=== PATIENT | female | born 2000 | race Caucasian/White ===

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

== ENCOUNTER → 2020-03-23 | Outpatient (CLI) | payer OTHER ==
[2020-03-26 06:34] LABS: Herpes simplex I and/or II IgM 1.25 INDEX (<=0.90); Herpes simplex IgG I Ab 0.23 (< or = 0.90); Herpes simplex IgG II Ab 15.5 (< or = 0.90)
== END | disposition home or self-care (01) ==
LOC: LABWHC1 15:07
PROVIDERS: ATTEND Nurse Practitioner Family
DX: N90.9 Noninflammatory disorder of vulva and perineum, unspecified (principal)
CPT/HCPCS: 36415; 86694; 86695; 86696

== ENCOUNTER 2023-09-27 17:44 | Outpatient (CLI) | payer BC, OTHER ==
[2023-09-27 19:14] VITALS: BP 121/70; PULSE 101; RESP 16; TEMP 98
--- NOTE | 2023-09-28 09:07 | P.MSEPDOC ---
Presenting Problems - Arrival Data Date of Arrival on Unit: 09/27/23 Time of Arrival on Unit: 17:45 Mode of Transport: Ambulatory - Complaint OB-Reason for Admission/Chief Complaint: Possible Onset of Labor Comment: cramping at home last 45 minutes. sharp pains also in vaginal area. has shorter cervix per u/s and being watched Medical History - Information : 1 Para: 0 Term: 0 : 0 Abortions: Spontaneous or Elective: 0 Number of Living Children: 0 - Gestational Age Gestational Age by MONA (wks/days): 24 Weeks and 1 Days Review of Systems - Review of Systems Constitutional: No problems Breast: No problems ENT: No problems Cardiovascular: No problems Respiratory: No problems Gastrointestinal: No problems Genitourinary: No problems Musculoskeletal: No problems Neurological: No problems Skin: No problems Comment: denies bleeding, leaking fluid, or discharge. denies intercourse, strenious exercise or heavy lifting. Vital Signs - Temperature Temperature: 98.0 F Temperature Source: Temporal Artery Scan - Pulse Right Radial Pulse Rate: 101 Pulse Assessment Method: Automatic Cuff - Respirations Respiratory Rate: 16 Oxygen Delivery Method: Room Air O2 Sat by Pulse Oximetry: 99 - Blood Pressure Right Arm Blood Pressure: 121/70 Blood Pressure Mean: 87 Blood Pressure Source: Automatic Cuff Medical Screen Scoring - Cervical Exam Dilation (cm): 0 Membranes: Intact - Uterine Contractions Intensity: Absent Resting: Soft to palpation - Assessment - Baby A Baseline FHR: 145 Heart Rate - NICHD Category: Category I (Normal) NST: Reactive Physician Notification - Physician Notified Physician Notified Date: 09/27/23 Physician Notified Time: 18:30 Physician: Rupa Horne New Order Received: Yes (october discharge with instructions and follow up to see dr Jesus mahmood.) Maternal Triage Index - Scheduled/Requesting Priority 5 Scheduled/Requesting Priority 5: Yes Criteria Met for Priority 5: c/o cramping and sharp pain in vagina for last 45 minutes. cervix closed, posterior, 50% effaced, hx of thinner cervix with preg. ,-2 station. no leaking fluid or bleeding. no monitoored contx. abd soft nontender to touch. active fetus. Disposition - Disposition OB Disposition: Physician follow up in office, Discharge to home, Written follow up instructions reviewed Discharge Date: 09/27/23 Discharge Time: 18:45 I agree with the RN Medical Screening Exam: Yes Case reviewed; plan agreed upon as documented in EMR&OBIX.: Yes Diagnosis: PAIN, UNSPECIFIED
== END 2023-09-27 18:45 | disposition home or self-care (01) ==
LOC: FBPOP 17:44
PROVIDERS: ATTEND Obstetrics & Gynecology
DX: O47.02 False labor before 37 completed weeks of gestation, second trimester (principal); O99.332 Smoking (tobacco) complicating pregnancy, second trimester; F17.200 Nicotine dependence, unspecified, uncomplicated; Z3A.24 24 weeks gestation of pregnancy
CPT/HCPCS: 99213

== ENCOUNTER 2023-11-30 13:00 | Outpatient (CLI) | payer BC, OTHER ==
[2023-11-30] MEDS: ONDANSETRON 4 MG/2 ML VIAL IVP STA (13:50)
[2023-11-30] MEDS: LACTATED RINGERS 1,000 ML IV ONE (13:50)
[2023-11-30] MEDS: FAMOTIDINE 20 MG/2 ML VIAL IV STA (13:52)
[2023-11-30 14:52] LABS: Appearance,Urine Clear (Clear); Bilirubin,Urine Negative (Negative); Blood,Urine Negative (Negative); Color,Urine Light Yellow; Glucose,Urine (UA) Negative (Negative); Ketones,Urine Negative (Negative); Leukocyte Esterase,Urine Small (Negative); Mucus,Urine Rare /hpf; Nitrite,Urine Negative (Negative); PH, Urine 7.5 (5.0-8.0); Protein,Urine Negative (Negative); RBC,Urine 1 /hpf (0-5); Specific Gravity,Urine 1.015 (1.001-1.035); Squamous Epithelial Cell,Urine 8 /hpf (0-4); Urobilinogen,Urine <2.0 mg/dL (<2.0); WBC,Urine 3 /hpf (0-5)
[2023-11-30] MEDS: NIFEdipine 10 MG CAP PO STA (15:36)
[2023-11-30] MEDS: TERBUTALINE 1 MG/ML VIAL SQ PRN (16:50)
[2023-11-30 17:27] VITALS: BP 112/72; PULSE 101; RESP 16; TEMP 97.9
--- NOTE | 2023-12-13 15:50 | P.MSEPDOC ---
Presenting Problems - Arrival Data Date of Arrival on Unit: 11/30/23 Time of Arrival on Unit: 13:00 Mode of Transport: Ambulatory - Complaint OB-Reason for Admission/Chief Complaint: Other Comment: N/V, back pain, abdominal pain Medical History - Information : 1 Para: 0 Term: 0 : 0 Abortions: Spontaneous or Elective: 0 Number of Living Children: 0 - Gestational Age Gestational Age by MONA (wks/days): 33 Weeks and 2 Days Review of Systems - Review of Systems Constitutional: No problems Breast: No problems ENT: No problems Cardiovascular: No problems Respiratory: No problems Gastrointestinal: No problems Genitourinary: No problems Musculoskeletal: No problems Neurological: No problems Skin: No problems Vital Signs - Temperature Temperature: 97.9 F Temperature Source: Temporal Artery Scan - Pulse Pulse Oximetery Pulse Rate: 101 Pulse Assessment Method: Pulse Oximetry - Respirations Respiratory Rate: 16 Oxygen Delivery Method: Room Air O2 Sat by Pulse Oximetry: 97 - Blood Pressure Right Arm Blood Pressure: 112/72 Blood Pressure Mean: 85 Blood Pressure Source: Automatic Cuff Medical Screen Scoring - Cervical Exam Dilation (cm): 0.5 Effacement (%): 60 Station: -3 Membranes: Intact - Uterine Contractions Frequency From (mins): 5 Frequency To (mins): 9 Duration From (seconds): 40 Duration To (seconds): 110 Intensity: Mild Resting: Soft to palpation - Assessment - Baby A Baseline FHR: 145 Heart Rate - NICHD Category: Category I (Normal) NST: Reactive Physician Notification - Physician Notified Physician Notified Date: 11/30/23 Physician Notified Time: 13:00 Physician: Chela Lee New Order Received: Yes - Notification Comment Comment: Dr. Lee on unit, report given that pt is having back/abdominal pain that started this morning as well as N/V. Orders to start an IV, give 1L LR bolus, 4mg zofran IVP, 20mg pepcid IVP, and send a UA. [id number] - Dr. Lee called, report given that nausea is better following zofran and pepcid, however, pt is still crampy and jude every 4-7mins. FFN collected and SVE performed (fingertip/60-70/-3). Orders to give a 2nd bag of IV fluid and reassess. Call back with cx pattern once UA is resulted and LR is infused. 1513-Dr. Lee called, report given on UA (no ketones), cx remain 5-6mins apart and pt is rating them 3/10 now. Orders to give 10mg PO procardia now and recheck cervix. If cx space out, pt can be discharged home, if cx do not space out, call MD back. 1634 -Dr. Lee called, report given that pt is still feeling contractions and (per pt) they are more intense. Contractions still graphing q6mins. Orders to give terbutaline per protocol. 1713-Dr. Lee called, report given that cx have stopped after 1 dose of terb. Pt is feeling much better now and has no complaints. Orders to discharge pt home with labor precautions Maternal Triage Index - Maternal Triage Index Presenting for scheduled procedure w/no complaint: No - Stat/Priority 1 Stat Priority 1: No - Urgent/Priority 2 Urgent Priority 2: Yes Provider Notified: Chela Lee Provider Notified Time: 13:00 Criteria Met for Priority 2: 33 2/7wks, n/v, detectable cx Disposition - Disposition OB Disposition: Discharge to home Discharge Date: 11/30/23 Discharge Time: 17:27 I agree with the RN Medical Screening Exam: Yes Physician's MSE Comment: I have neither seen nor examined the patient Case reviewed; plan agreed upon as documented in EMR&OBIX.: Yes Diagnosis: MATERNAL CARE FOR PROBLEM, UNSP, THIRD * DO NOT USE *
== END 2023-11-30 17:27 | disposition home or self-care (01) ==
LOC: FBPOP 13:00
PROVIDERS: ATTEND Obstetrics & Gynecology
DX: O26.893 Other specified pregnancy related conditions, third trimester (principal); M54.50 Low back pain, unspecified; R10.9 Unspecified abdominal pain; O99.333 Smoking (tobacco) complicating pregnancy, third trimester; F17.200 Nicotine dependence, unspecified, uncomplicated; Z3A.33 33 weeks gestation of pregnancy
CPT/HCPCS: 59025; 99214; 96361; 96372; 96374; 96375; 81001; J3105; J2405; J3490; 96360

== ENCOUNTER 2023-12-27 21:20 | Outpatient (CLI) | payer BC, OTHER ==
[2023-12-27 22:56] VITALS: BP 134/90; PULSE 104; RESP 16; TEMP 97.1
--- NOTE | 2024-01-24 10:37 | P.MSEPDOC ---
Presenting Problems - Arrival Data Date of Arrival on Unit: 12/27/23 Time of Arrival on Unit: 21:20 Mode of Transport: Ambulatory - Complaint OB-Reason for Admission/Chief Complaint: Possible Onset of Labor Comment: Patient presents to triage with contractions around every 5 min rating 2/10 pain Medical History - Information : 1 Para: 0 Term: 0 : 0 Abortions: Spontaneous or Elective: 0 Number of Living Children: 0 - Gestational Age Gestational Age by MONA (wks/days): 37 Weeks and 1 Days Review of Systems - Review of Systems Constitutional: No problems Breast: No problems ENT: No problems Cardiovascular: No problems Respiratory: No problems Gastrointestinal: No problems Genitourinary: No problems Musculoskeletal: No problems Neurological: No problems Skin: No problems Vital Signs - Temperature Temperature: 97.1 F Temperature Source: Temporal Artery Scan - Pulse Pulse Oximetery Pulse Rate: 104 Pulse Assessment Method: Pulse Oximetry - Respirations Respiratory Rate: 16 Oxygen Delivery Method: Room Air O2 Sat by Pulse Oximetry: 98 - Blood Pressure Right Arm Blood Pressure: 134/90 Blood Pressure Mean: 104 Blood Pressure Source: Automatic Cuff Physician Notification - Physician Notified Physician Notified Date: 12/27/23 Physician Notified Time: 22:32 Physician: Dat Moy Order Received: Yes (Discharge home) Maternal Triage Index - Maternal Triage Index Presenting for scheduled procedure w/no complaint: No - Stat/Priority 1 Stat Priority 1: No - Urgent/Priority 2 Urgent Priority 2: No - Prompt/Priority 3 Prompt Priority 3: No - Non-Urgent/Priority 4 Non-Urgent Priority 4: Yes Criteria Met for Priority 4: Patient presents to triage with contractions around every 5 min rating 2/10 pain Disposition - Disposition OB Disposition: Discharge to home Discharge Date: 12/27/23 Discharge Time: 22:56 I agree with the RN Medical Screening Exam: Yes Physician's MSE Comment: I have neither seen nor examined the patient. Case reviewed; plan agreed upon as documented in EMR&OBIX.: Yes Diagnosis: RELATED CONDITIONS, UNSPECIFIED, THIRD TRIMESTER
== END 2023-12-27 22:57 | disposition home or self-care (01) ==
LOC: FBPOP 21:20
PROVIDERS: ATTEND Obstetrics & Gynecology
DX: O47.1 False labor at or after 37 completed weeks of gestation (principal); O99.333 Smoking (tobacco) complicating pregnancy, third trimester; F17.200 Nicotine dependence, unspecified, uncomplicated; Z3A.37 37 weeks gestation of pregnancy
CPT/HCPCS: 59025; 99213

== ENCOUNTER 2024-01-05 20:06 | Outpatient (CLI) | payer BC, OTHER ==
[2024-01-05 21:37] VITALS: BP 127/84; PULSE 99; RESP 16; TEMP 97.8
--- NOTE | 2024-01-24 10:54 | P.MSEPDOC ---
Presenting Problems - Arrival Data Date of Arrival on Unit: 01/05/24 Time of Arrival on Unit: 20:02 Mode of Transport: Ambulatory - Complaint OB-Reason for Admission/Chief Complaint: Possible Onset of Labor Comment: pt states that she had a membrane sweep in office today and has been cramping and spotting since and would like to get checked out. Medical History - Information : 1 Para: 0 Term: 0 : 0 Abortions: Spontaneous or Elective: 0 Number of Living Children: 0 - Gestational Age Gestational Age by MONA (wks/days): 38 Weeks and 3 Days Review of Systems - Review of Systems Constitutional: No problems Breast: No problems ENT: No problems Cardiovascular: No problems Respiratory: No problems Gastrointestinal: No problems Genitourinary: No problems Musculoskeletal: No problems Neurological: No problems Skin: No problems Vital Signs - Temperature Temperature: 97.8 F Temperature Source: Temporal Artery Scan - Pulse Pulse Oximetery Pulse Rate: 99 Pulse Assessment Method: Pulse Oximetry - Respirations Respiratory Rate: 16 Oxygen Delivery Method: Room Air O2 Sat by Pulse Oximetry: 97 - Blood Pressure Right Arm Blood Pressure: 127/84 Blood Pressure Mean: 98 Blood Pressure Source: Automatic Cuff Medical Screen Scoring - Cervical Exam Dilation (cm): 2 Effacement (%): 80 Station: -2 Membranes: Intact - Uterine Contractions Intensity: Mild Resting: Soft to palpation - Assessment - Baby A Baseline FHR: 130 Heart Rate - NICHD Category: Category I (Normal) NST: Reactive Physician Notification - Physician Notified Physician Notified Date: 01/05/24 Physician Notified Time: 21:26 Physician: Dat Moy Order Received: Yes (d/c home) Maternal Triage Index - Maternal Triage Index Presenting for scheduled procedure w/no complaint: No - Stat/Priority 1 Stat Priority 1: No - Urgent/Priority 2 Urgent Priority 2: No - Prompt/Priority 3 Prompt Priority 3: No - Non-Urgent/Priority 4 Non-Urgent Priority 4: Yes Criteria Met for Priority 4: pt states she had a membrane sweep in office today and has been cramping and spotting since. states she occationally has contractions but not regular in timing. Disposition - Disposition OB Disposition: Discharge to home Discharge Date: 01/05/24 Discharge Time: 21:30 I agree with the RN Medical Screening Exam: Yes Physician's MSE Comment: I have neither seen nor examined the patient. Case reviewed; plan agreed upon as documented in EMR&OBIX.: Yes Diagnosis: RELATED CONDITIONS, UNSPECIFIED, THIRD TRIMESTER
== END 2024-01-05 21:30 | disposition home or self-care (01) ==
LOC: FBPOP 20:06
PROVIDERS: ATTEND Obstetrics & Gynecology
DX: O47.1 False labor at or after 37 completed weeks of gestation (principal); O99.333 Smoking (tobacco) complicating pregnancy, third trimester; F17.200 Nicotine dependence, unspecified, uncomplicated; Z3A.38 38 weeks gestation of pregnancy
CPT/HCPCS: 59025; 99213

== ENCOUNTER 2024-01-06 18:52 | Inpatient (IN) | payer BC, OTHER ==
[2024-01-06] MEDS ORDERED: TERBUTALINE 1 MG/ML VIAL SQ PRN (19:54)
[2024-01-06] MEDS ORDERED: TRANEXAMIC 1,000 MG/100ML-NACL 1,000 MG in EMPTY BAG 1 BAG IV PRN (19:54)
[2024-01-06] MEDS ORDERED: miSOPROStoL 200 MCG TAB RECTAL PRN (19:54)
[2024-01-06] MEDS ORDERED: CARBOPROST TROMETHAMINE 250 MCG/ML 1 ML AMP IM PRN (19:54)
[2024-01-06] MEDS ORDERED: METHYLERGONOVINE 0.2 MG/ML 1 ML AMP IM PRN (19:54)
[2024-01-06] MEDS ORDERED: OXYTOCIN 10 UNIT/ML 1 ML VIAL IM PRN (19:54)
[2024-01-06] MEDS ORDERED: miSOPROStoL 200 MCG TAB PO PRN (19:54)
[2024-01-06] MEDS: LACTATED RINGERS 1,000 ML IV SCH (20:00)
[2024-01-06 20:16] LABS: Basophils % (A) 0 %; Eosinophils # (A) 0.1 k/uL (0-0.7); Eosinophils % (A) 1 %; HCT 34.4 % (34.0-46.0); HGB 11.6 gm/dL (11.4-16.0); Lymphocytes # (A) 2.6 k/uL (1.0-4.8); Lymphocytes % (A) 22 %; MCH 31.5 pg (25.0-35.0); MCHC 33.8 g/dL (31.0-37.0); MCV 93.3 fL (80.0-100.0); Mean Platelet Volume 7.6; Monocytes # (A) 0.6 k/uL (0-1.0); Monocytes % (A) 5 %; Neutrophils # (A) 8.4 k/uL (1.3-7.7); Neutrophils % (A) 71 %; Platelet Count 324 k/uL (150-450); RBC 3.69 m/uL (3.80-5.40); RDW 13.1 % (11.5-15.5); WBC 11.9 k/uL (3.8-10.6)
[2024-01-06] MEDS: OXYTOCIN 30 UNITS/500 ML NS 30 UNIT in SALINE 1 500ML.BAG IV SCH (20:44)
[2024-01-06] MEDS: FAMOTIDINE 20 MG TAB PO STA (20:44)
[2024-01-06] MEDS ORDERED: ROPIVACAINE 5 MG/ML 30 ML VIAL ONE (23:00)
[2024-01-06] MEDS ORDERED: SODIUM CHLORIDE 0.9% 250 ML BAG ONE (23:00)
[2024-01-06] MEDS ORDERED: fentaNYL (PF) 50 MCG/ML 5 ML AMP ONE (23:00)
[2024-01-07] MEDS: CALCIUM CARBONATE 500 MG CHEWABLE PO PRN (02:55)
--- NOTE | 2024-01-07 02:57 | P.HPOB ---
History of Present Illness H&P Date: 01/07/24 Chief Complaint: SROM 23 year old presented at 38 weeks 5 days with SROM at 1815 on 01/06/24. Her cervix was 2/70/-2 and she was not jude. heart tones category 1. Review of Systems All systems: negative Constitutional: Denies chills, Denies fever Eyes: denies blurred vision, denies pain Ears, nose, mouth and throat: Denies headache, Denies sore throat Cardiovascular: Denies chest pain, Denies shortness of breath Respiratory: Denies cough Gastrointestinal: Denies abdominal pain, Denies diarrhea, Denies nausea, Denies vomiting Genitourinary: Denies dysuria, Denies hematuria Musculoskeletal: Denies myalgias Integumentary: Denies pruritus, Denies rash Neurological: Denies numbness, Denies weakness Psychiatric: Denies anxiety, Denies depression Endocrine: Denies fatigue, Denies weight change Past Medical History Past Medical History: No Reported History Additional Past Medical History / Comment(s): migraines History of Any Multi-Drug Resistant Organisms: None Reported Past Surgical History: No Surgical Hx Reported Past Psychological History: ADD/ADHD Smoking Status: Never smoker Past Alcohol Use History: None Reported Past Drug Use History: None Reported Medications and Allergies Home Medications Medication Instructions Recorded Confirmed Type metFORMIN HCL [Glucophage] 500 mg PO BID 02/04/19 01/06/24 History Vit No.179/Iron/Folic 1 each PO DAILY 09/27/23 01/06/24 History [ Tablet] Ferrous Sulfate [Iron] 1 tab PO DAILY 12/27/23 01/06/24 History Allergies Allergy/AdvReac Type Severity Reaction Status Date / Time No Known Allergies Allergy Verified 01/06/24 18:57 Exam Osteopathic Statement: *. No significant issues noted on an osteopathic structural exam other than those noted in the History and Physical/Consult. Vital Signs Temp Pulse Resp BP Pulse Ox 01/06/24 19:36 97.8 F 104 H 16 133/80 98 01/06/24 18:57 95.5 F L 113 H 18 138/82 113 H Intake and Output 01/06/24 01/06/24 01/07/24 14:59 22:59 06:59 Other: # Voids 1 Weight 94.801 kg HEart: RRR Lungs: CTAB Abdomen: soft, nontender Extremeties: neg tyson's Results Result Diagrams: 01/06/24 19:50 Abnormal Lab Results - Last 24 Hours (Table) 01/06/24 Range/Units 19:50 WBC 11.9 H (3.8-10.6) k/uL RBC 3.69 L (3.80-5.40) m/uL Neutrophils # 8.4 H (1.3-7.7) k/uL Assessment and Plan (1) Spontaneous rupture of membranes Current Visit: Yes Status: Acute Code(s): [id number] - SNOMED Code(s): 052547585 (2) 38 weeks gestation of Current Visit: Yes Status: Acute Code(s): Z3A.38 - 38 WEEKS GESTATION OF SNOMED Code(s): 48502622 Plan: 1. admit to [facility] 2. pitocin augmentation if necessary 3. anticipate normal vaginal delivery
--- NOTE | 2024-01-07 04:20 | P.PROBDLV ---
Vaginal Delivery Note - . Vaginal Delivery Note: 23 year old presented at 38 weeks 5 days with SROM at 1815 on 01/06/24. Her cervix was 2/70/-2 and she was not jude. heart tones category 1. Around 2029 patient was still not jude so Pitocin augmentation was started. When patient was uncomfortable she did get an epidural. Her cervix was completely dilated at 3:38 AM. She pushed, delivered a viable male over intact perineum under epidural anesthesia over 402. Head delivered OA, anterior shoulder delivered gentle downward guidance followed by posterior shoulder and rest of body. Nose and mouth bulb suctioned, cord clamped and cut, placed mother's abdomen. Apgars 8, 9, weight 7 pounds 7.9 ounces. Placenta delivered spontaneously, intact with three-vessel cord at 4:04 AM. Vagina, cervix, perineum inspected. First-degree midline laceration was repaired with 3-0 Vicryl. Estimated blood loss 200 mL. Mother and baby in stable condition.
[2024-01-07] MEDS: BENZOCAINE/MENTHOL SPRAY 1 GM/SPRAY AEROSOL TOPICAL PRN (04:53)
[2024-01-07] MEDS: LIDOCAINE 0.5% (PF) 5 MG/ML (50 ML SDV) SQ PRN (04:55)
[2024-01-07] MEDS ORDERED: SIMETHICONE 80 MG CHEWABLE PO PRN (05:36)
[2024-01-07] MEDS ORDERED: diphenhydrAMINE 50 MG CAP PO PRN (05:36)
[2024-01-07] MEDS ORDERED: HYDROCORTISONE 2.5% RECTAL CREAM 30 GM TUBE RECTAL PRN (05:36)
[2024-01-07] MEDS ORDERED: ZOLPIDEM 5 MG TAB PO PRN (05:36)
[2024-01-07] MEDS ORDERED: LANOLIN CREAM 1 GM TUBE TOPICAL PRN (05:36)
[2024-01-07] MEDS ORDERED: diphenhydrAMINE 25 MG CAP PO PRN (05:36)
[2024-01-07] MEDS ORDERED: diphenhydrAMINE 50 MG/ML 1 ML VIAL IVP PRN ×2 (05:36)
[2024-01-07] MEDS: SENNOSIDES-DOCUSATE SODIUM 1 EACH TAB PO SCH (08:55)
[2024-01-07] MEDS: IBUPROFEN 600 MG TAB PO PRN (08:55)
[2024-01-08 02:30] VITALS: RESP 16
[2024-01-08 08:54] VITALS: BP 118/79; PULSE 96; TEMP 98.1
--- NOTE | 2024-01-08 08:55 | P.DS ---
Providers Date of admission: 01/06/24 19:17 Expected date of discharge: 01/08/24 Attending physician: Chela Lee MD Primary care physician: Stated None Hospital Course: Ms. Boateng is a 23 year old now s/p normal spontaneous vaginal delivery at 38 weeks gestation. She is doing well this morning on PPD#1 and desires discharge home. She is eating, drinking, ambulating, and voiding without difficulty. She is breast feeding her son without difficulty. Her son is now s/p circumcision. Lochia is moderate. She denies fevers, chills, chest pain, shortness of breath, pain/swelling in the legs. She requests Motrin, Tylenol, and stool softeners for discharge home. restrictions are reviewed with the patient including pelvic rest for 6 weeks. She is encouraged to call the office for fevers, chills, heavy bleeding, foul-smelling discharge, or mastitis concerns. She will follow up in the office in 6 weeks for visit. All questions are answered. Assessment: 23 year old now PPD#1 s/p Patient Condition at Discharge: Good Plan - Discharge Summary New Discharge Prescriptions: New polyethylene glycoL 3350 [Miralax] 17 gm PO DAILY PRN #527 gm PRN Reason: Constipation Ibuprofen [Motrin] 600 mg PO Q6HR PRN #30 tab PRN Reason: Mild Pain (Scale 1 To 3) Acetaminophen Tab [Tylenol] 650 mg PO Q6H PRN #30 tab PRN Reason: Mild Pain (Scale 1 To 3) No Action metFORMIN HCL [Glucophage] 500 mg PO BID Vit No.179/Iron/Folic [ Tablet] 1 each PO DAILY Ferrous Sulfate [Iron] 1 tab PO DAILY Discharge Medication List metFORMIN HCL [Glucophage] 500 mg PO BID 02/04/19 [History] Vit No.179/Iron/Folic [ Tablet] 1 each PO DAILY 09/27/23 [History] Ferrous Sulfate [Iron] 1 tab PO DAILY 12/27/23 [History] Acetaminophen Tab [Tylenol] 650 mg PO Q6H PRN #30 tab 01/08/24 [Rx] Ibuprofen [Motrin] 600 mg PO Q6HR PRN #30 tab 01/08/24 [Rx] polyethylene glycoL 3350 [Miralax] 17 gm PO DAILY PRN #527 gm 01/08/24 [Rx] Follow up Appointment(s)/Referral(s): Chela eLe MD [STAFF PHYSICIAN] - 6 Weeks Discharge Disposition: HOME SELF-CARE
[2024-01-08] MEDS: ACETAMINOPHEN TAB 325 MG TAB PO PRN (11:27)
== END 2024-01-08 14:30 | disposition home or self-care (01) | DRG 560 ==
LOC: FBPOP 18:52 → 4FBP 19:17
PROVIDERS: ADMIT Obstetrics & Gynecology; ATTEND Obstetrics & Gynecology
PROC: 10E0XZZ Delivery of Products of Conception, External Approach (ICD-10-PCS; principal; 2024-01-07)
PROC: 0HQ9XZZ Repair Perineum Skin, External Approach (ICD-10-PCS; principal; 2024-01-07)
DX: O42.02 Full-term premature rupture of membranes, onset of labor within 24 hours of rupture (principal); O99.344 Other mental disorders complicating childbirth; F90.9 Attention-deficit hyperactivity disorder, unspecified type; O70.0 First degree perineal laceration during delivery; Z28.310 Unvaccinated for COVID-19; Z79.84 Long term (current) use of oral hypoglycemic drugs; Z79.899 Other long term (current) drug therapy; Z3A.38 38 weeks gestation of pregnancy; Z37.0 Single live birth
CPT/HCPCS: 59025; 84112; 85025; 86850; 86900; 86901; 99213

== ENCOUNTER 2024-09-07 18:05 | Inpatient (IN) | payer BC, MEDICAID, OTHER ==
--- NOTE | 2024-09-07 19:42 | ED ---
General Adult HPI - General Chief complaint: Psychiatric Symptoms Stated complaint: mental health Time Seen by Provider: 09/07/24 18:41 Source: patient, RN notes reviewed, old records reviewed Mode of arrival: ambulatory Limitations: no limitations - History of Present Illness Initial comments: Patient is a 23-year-old female presents emergency department for depression, anxiety, suicidal ideations. Have been ongoing but have been worse lately. Plan is to drink bleach. States she did not do this. Is concerned because she does have a 8-month-old son and is concerned as to who will take care of him. Presents to be evaluated. Says she does follow-up with therapist. Denies any fevers, chills, shortness of breath. Has no other acute complaints at this time. Presents for further evaluation at this time.Denies homicidal ideations, times complaints. Denies any visual or auditory hallucinations. Has no other acute complaints at this time. - Related Data Home Medications Medication Instructions Recorded Confirmed buPROPion HCL [buPROPion HCL XL] 150 mg PO DAILY 09/07/24 09/07/24 Allergies Allergy/AdvReac Type Severity Reaction Status Date / Time No Known Allergies Allergy Verified 09/07/24 20:28 Review of Systems ROS Statement: Those systems with pertinent positive or pertinent negative responses have been documented in the HPI. Review of Systems: CONST: Denies fever EYES: Denies blurry vision ENT: Denies nasal congestion C/V: Denies Chest pain RESP: Denies shortness of breath GI: Denies abdominal pain : Denies dysuria SKIN: Denies rash. MSK: Denies joint pain. NEURO: Denies headache ROS Other: All systems not noted in ROS Statement are negative. Past Medical History Past Medical History: No Reported History Additional Past Medical History / Comment(s): migraines History of Any Multi-Drug Resistant Organisms: None Reported Past Surgical History: No Surgical Hx Reported Past Psychological History: ADD/ADHD Smoking Status: Never smoker Past Alcohol Use History: None Reported Past Drug Use History: None Reported General Exam - General Exam Comments Initial Comments: General: Appears anxious HEAD: Normal with no signs of head trauma. EYES: EOMI. ENT: Hearing grossly intact. RESPIRATORY: No respiratory distress. C/V: Regular rate and rhythm. ABD: Abdomen is nondistended. EXT: No obvious deformity. SKIN: No rashes or lesions observed on exposed skin. NEURO: Alert and oriented. Limitations: no limitations Course Vital Signs 09/07/24 18:12 Temperature 98.2 F Pulse Rate 91 Respiratory 18 Rate Blood Pressure 114/76 O2 Sat by Pulse 97 Oximetry Medical Decision Making - Medical Decision Making Was pt. sent in by a medical professional or institution (, VARGAS, IMPLEMENTATION MANAGER, urgent care, hospital, or half-way...) When possible be specific @ -No Did you speak to anyone other than the patient for history (EMS, parent, family, police, friend...)? What history was obtained from this source @ -No Did you review nursing and triage notes (agree or disagree)? Why? @ -I reviewed and agree with nursing and triage notes Were old charts reviewed (outside hosp., previous admission, EMS record, old EKG, old radiological studies, urgent care reports/EKG's, half-way records)? Report findings @ -No old charts were reviewed Differential Diagnosis (chest pain, altered mental status, abdominal pain women, abdominal pain men, vaginal bleeding, weakness, fever, dyspnea, syncope, headache, dizziness, GI bleed, back pain, seizure, CVA, palpatations, mental health, musculoskeletal)? @ -Differential Mental Health Depression, anxiety, bipolar, psychosis, schizophrenia, borderline personality, situational depression, adjustment disorder, behavioral disorder, brain tumor, malingering, substance abuse, encephalopathy, medication reaction, dementia, hypothyroidism, degenerative neurologic disorder, lupus.... This is not meant to be all-inclusive list EKG interpreted by me (3pts min.). @ -None done X-rays interpreted by me (1pt min.). @ -None done CT interpreted by me (1pt min.). @ -None done U/S interpreted by me (1pt. min.). @ -None done What testing was considered but not performed or refused? (CT, X-rays, U/S, labs)? Why? @ -None What meds were considered but not given or refused? Why? @ -None Did you discuss the management of the patient with other professionals (professionals i.e. VARGAS Jaramillo, IMPLEMENTATION MANAGER, lab, RT, psych nurse, social work associate, drier unloader, teacher, officer lieutenant, oil field caser)? Give summary @ -EPS notified of the consult. Was smoking cessation discussed for >3mins.? @ -No Was critical care preformed (if so, how long)? @ -No Were there social determinants of health that impacted care today? How? (Homelessness, low income, unemployed, alcoholism, drug addiction, transportation, low edu. Level, literacy, decrease access to med. care, long-term, rehab)? @ -No Was there de-escalation of care discussed even if they declined (Discuss DNR or withdrawal of care, Hospice)? DNR status @ -No What co-morbidities impacted this encounter? (DM, HTN, Smoking, COPD, CAD, Cancer, CVA, ARF, Chemo, Hep., AIDS, mental health diagnosis, sleep apnea, morbid obesity)? @ -None Was patient admitted / discharged? Hospital course, mention meds given and route, prescriptions, significant lab abnormalities, going to OR and other pertinent info. @ -Based on the patient's presentation and physical exam, presents emergency department complaining of worsening anxiety and depression with suicidal ideations with a plan. Sitter ordered. Suicide precautions ordered. Vitals are within acceptable limits. Patient given a dose of Ativan for anxiety. At this time, patient is medically cleared for evaluation by psychiatry. Disposition pending psychiatric evaluation. EPS notified of the consult. EPS evaluated patient. She does meet inpatient criteria. Patient will be admitted to inpatient psychiatry. Undiagnosed new problem with uncertain prognosis? @ -No Drug Therapy requiring intensive monitoring for toxicity (Heparin, Nitro, Insulin, Cardizem)? @ -No Were any procedures done? @ -No Diagnosis/symptom? @ -Suicidal ideation, depression Acute, or Chronic, or Acute on Chronic? @ -Acute Uncomplicated (without systemic symptoms) or Complicated (systemic symptoms)? @ -Complicated Side effects of treatment? @ -None Exacerbation, Progression, or Severe Exacerbation] @ -No Poses a threat to life or bodily function? @ -yes - Lab Data Lab Results 09/07/24 09/07/24 Range/Units 20:04 20:04 Urine HCG, Qual Not Detected (Not Detectd) Urine Opiates Screen Not Detected (NotDetected) Ur Oxycodone Screen Not Detected (NotDetected) Urine Methadone Screen Not Detected (NotDetected) Ur Barbiturates Screen Not Detected (NotDetected) U Tricyclic Antidepress Not Detected (NotDetected) Ur Phencyclidine Scrn Not Detected (NotDetected) Ur Amphetamines Screen Not Detected (NotDetected) U Methamphetamines Scrn Not Detected (NotDetected) U Benzodiazepines Scrn Not Detected (NotDetected) Urine Cocaine Screen Not Detected (NotDetected) U Marijuana (THC) Screen Detected H (NotDetected) Disposition Clinical Impression: Suicidal ideation, Depression Disposition: TRANSFER TO PSYCH HOSP/UNIT Condition: Stable Referrals: None,Stated [Primary Care Provider] - 1-2 days Time of Disposition: 20:00
[2024-09-07] MEDS: LORazepam 1 MG TAB PO STA (20:02)
[2024-09-07 20:37] LABS: Amphetamine Screen,Urine Not Detected (NotDetected); Barbiturate Screen,Urine Not Detected (NotDetected); Benzodiazepines Screen,Urine Not Detected (NotDetected); Cocaine Screen,Urine Not Detected (NotDetected); Methadone Screen, Urine Not Detected (NotDetected); Opiate Screen,Urine Not Detected (NotDetected); Oxycodone Screen, Urine Not Detected (NotDetected); Phencyclidine Screen,Urine Not Detected (NotDetected); Tricyclic Antidepressant,Urine Not Detected (NotDetected); Urn Cannabinoid Scrn Detected (NotDetected)
[2024-09-07] MEDS ORDERED: ACETAMINOPHEN TAB 325 MG TAB PO PRN (23:04)
[2024-09-07] MEDS ORDERED: MAGNESIUM HYDROXIDE 2,400 MG/30 ML CUP PO PRN (23:04)
[2024-09-07] MEDS ORDERED: MAG HYDROX/AL HYDROX/SIMETH 355 ML BOTTLE PO PRN (23:04)
[2024-09-07] MEDS ORDERED: LORazepam 2 MG/ML INJ IM PRN (23:06)
[2024-09-07] MEDS ORDERED: HALOPERIDOL LACTATE 5 MG/ML 1 ML VIAL IM PRN (23:06)
[2024-09-07] MEDS: IBUPROFEN 600 MG TAB PO PRN (23:53)
[2024-09-07] MEDS: LORazepam 1 MG TAB PO PRN (23:53)
[2024-09-08 08:16] LABS: Amorphous Sediment,Urine Few /hpf; Appearance,Urine Turbid (Clear); Bacteria,Urine Rare /hpf; Bilirubin,Urine Negative (Negative); Blood,Urine Negative (Negative); Calcium Oxalate Crystals,Urine Occasional /hpf; Color,Urine Yellow; Glucose,Urine (UA) Negative (Negative); Ketones,Urine Negative (Negative); Leukocyte Esterase,Urine Small (Negative); Mucus,Urine Many /hpf; Nitrite,Urine Negative (Negative); PH, Urine 7.5 (5.0-8.0); Protein,Urine 1+ (Negative); RBC,Urine 3 /hpf (0-5); Specific Gravity,Urine 1.023 (1.001-1.035); Squamous Epithelial Cell,Urine 17 /hpf (0-4); Urobilinogen,Urine <2.0 mg/dL (<2.0); WBC,Urine 8 /hpf (0-5)
[2024-09-08] MEDS: buPROPion XL 150 MG TAB.ER.24H PO SCH (09:27)
[2024-09-08] MEDS: ARIPiprazole 5 MG TAB PO SCH (13:20)
--- NOTE | 2024-09-08 16:34 | P.HP ---
Psychiatric H&P - . H&P Date: 09/08/24 History & Physical: Allergies Allergy/AdvReac Type Severity Reaction Status Date / Time No Known Allergies Allergy Verified 09/07/24 20:28 Vital Signs Temp 98.0 F 09/08/24 09:00 Pulse 85 09/08/24 09:00 Resp 18 09/08/24 09:00 BP 89/59 09/08/24 09:00 Pulse Ox 96 09/07/24 23:37 FiO2 Intake & Output 09/07/24 09/08/24 09/08/24 18:59 06:59 18:59 Weight 86.183 kg 86.183 kg Laboratory Last Values Urine Color Yellow 09/07/24 20: Urine Appearance Turbid (Clear) H 09/07/24 20: Urine pH 7.5 (5.0-8.0) 09/07/24 20:04 Ur Specific [place] 1.023 (1.001-1.035) 09/07/24 20:04 Urine Protein 1+ (Negative) H 09/07/24 20: Urine Glucose (UA) Negative (Negative) 09/07/24 20: Urine Ketones Negative (Negative) 09/07/24 20: Urine Blood Negative (Negative) 09/07/24 20: Urine Nitrite Negative (Negative) 09/07/24 20: Urine Bilirubin Negative (Negative) 09/07/24 20: Urine Urobilinogen <2.0 mg/dL (<2.0) 09/07/24 20:04 Ur Leukocyte Esterase Small (Negative) H 09/07/24 20:04 Urine RBC 3 /hpf (0-5) 09/07/24 20:04 Urine WBC 8 /hpf (0-5) H 09/07/24 20:04 Ur Squamous Epith Cells 17 /hpf (0-4) H 09/07/24 20:04 Calcium Oxalate Crystal Occasional /hpf (None) H 09/07/24 20:04 Amorphous Sediment Few /hpf (None) H 09/07/24 20:04 Urine Bacteria Rare /hpf (None) H 09/07/24 20:04 Urine Mucus Many /hpf (None) H 09/07/24 20:04 Urine HCG, Qual Not Detected (Not Detectd) 09/07/24 20: Urine Opiates Screen Not Detected (NotDetected) 09/07/24 20:04 Ur Oxycodone Screen Not Detected (NotDetected) 09/07/24 20:04 Urine Methadone Screen Not Detected (NotDetected) 09/07/24 20:04 Ur Barbiturates Screen Not Detected (NotDetected) 09/07/24 20:04 U Tricyclic Antidepress Not Detected (NotDetected) 09/07/24 20:04 Ur Phencyclidine Scrn Not Detected (NotDetected) 09/07/24 20:04 Ur Amphetamines Screen Not Detected (NotDetected) 09/07/24 20:04 U Methamphetamines Scrn Not Detected (NotDetected) 09/07/24 20:04 U Benzodiazepines Scrn Not Detected (NotDetected) 09/07/24 20:04 Urine Cocaine Screen Not Detected (NotDetected) 09/07/24 20:04 U Marijuana (THC) Screen Detected (NotDetected) H 09/07/24 20:04 SARS-CoV-2 (PCR) Not Detected (Not Detectd) 09/07/24 20:04 09/08/24 11:38 IDENTIFYING DATA: Patient is a 23 year old female who is employed HPI: Patient presented to the ED for increased depression and SI. She had a plan to drink bleach. Patient was seen via HIPAA-compliant Zoom and patient consented. She was sad and tearful on interview. She said she had been thinking about suicide for the past 3 days. She reports contemplating drinking a bottle of bleach that was nearby yesterday when she called 911 to get help. She did not want to hurt her son and therefore she decided to get help. Patient reports numerous psychosocial stressors, including on/off relationship and interpersonal conflict with an ex- boyfriend, recent of her foster father, loss of job and car. She endorses low mood for the past 2 months and denies low mood following of her child. She reports trouble falling and staying asleep. She has repetitive dreams and images of her father, which she witnessed. She endorses fair appetite, poor energy, anhedonia, and fair concentration. She has feelings of guilt of being not good enough but denies thoughts of worthlessness. She endorses binge eating, including eating until she is uncomfortably full, eating when not hungry, eating while alone, and feeling embarrassed. She says this has been ongoing for many years and she has been binge-eating at least once a week recently. She denies purging or laxative use or other compensatory measures. Patient reports periods of up to 1 week with elevated energy, talkativeness, poor sleep, impulsiveness, risk taking including consuming more alcohol though she wanted to be sober, and grandiosity. Patient reports worrying constantly about "everything." She is currently worried about her car, bills, and her son. She endorses muscle fatigue, keyed up, restlessness, and low energy. Patient denies any suicidal or homicidal ideations intent or plan. She denies access to weapons/firearms. At this time patient denies any auditory or visual hallucinations. Patient denies any recent flight of ideas racing thoughts and increased in goal directed behavior. Patient denies all substance use recently but UDS was positive for cannabis. PAST PSYCHIATRIC HISTORY: Follows with [facility]. Patient is currently on Wellbutrin. Patient reports a hx of cutting as a child and was hospitalized at [facility]. Another hospitalization in [place] for suicide attempt via overdose. PMH: as per ER note ALLERGIES: as per EMR CHEMICAL DEPENDENCY HISTORY: Alcohol: Last use was 2+ years ago. Cannabis was 2 months ago. Hx of DUI and currently on probation. FAMILY PSYCHIATRIC/SUBSTANCE USE HISTORY: Mother: Addicted "to everything under the sun." Father: Alcohol and cannabis Denies suicide attempts SOCIAL HISTORY: Patient was born and raised by foster parents. She says her bio mom was an addict. She maintains relationship with her bio dad. Her foster dad Feb 18 2024. Has a son born in December. Currently living by herself. Currently single and reports hx of chaotic relationships. Was working at [employer] but was fired. 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 Patient appears to have fair hygiene and grooming. Behavior: Patient is seated without any agitated behavior. Speech: Patient's speech is fluent and nonpressured. Mood/Affect: Patient reports their mood is depressed, affect is congruent and tearful Suicidality/Homicidality: Patient denies having any homicidal ideation intent or plan. Denies any current suicidal ideations intent or plan Perceptions: Patient denies any visual hallucinations and denies any auditory hallucinations Though content/process: There is no evidence of any delusional thought content and thought process is linear and goal-directed. Memory and concentration: AOX3, grossly intact for the purposes of this session. Can spell "WORLD" backwards Judgment and insight: fair STRENGTHS/WEAKNESSES: strength is that patient is resilient and has social support. Weakness is that patient has comorbid substance use and genetic loading for substance use. INTELLECT: average IMPRESSIONS: Bipolar disorder, currently depressed without psychotic features Binge-eating disorder Generalized Anxiety Disorder Cluster B traits Alcohol use disorder, severe, in sustained remission Cannabis use disorder PLAN: -Patient is admitted under voluntary status to [facility] for stabilization of psychiatric symptoms and safety. Patient has signed adult voluntary form and has signed medication consent and is placed in patient's chart. -Medications : Start Abilify 5 mg daily for mood stabilization. Consider augmenting with medication for anxiety -Ativan and Haldol PRN for agitation/aggression -Patient was counselled on substance abuse and desired to cut back on use. -Patient was informed of the risks, benefits and side effects of the medications and patient verbally consented to taking the medications. -Internal Medicine consult to perform medical evaluation and physical. -NRT -not needed as patient does not smoke -SW on board for discharge planning. Encourage patient to participate in groups to work on coping skills. 09/08/24 16:18
[2024-09-09 11:12] LABS: Basophils % (A) 0 %; Eosinophils # (A) 0.1 k/uL (0-0.7); Eosinophils % (A) 1 %; HCT 42.3 % (34.0-46.0); HGB 13.4 gm/dL (11.4-16.0); Lymphocytes # (A) 2.1 k/uL (1.0-4.8); Lymphocytes % (A) 38 %; MCH 28.4 pg (25.0-35.0); MCHC 31.6 g/dL (31.0-37.0); MCV 89.7 fL (80.0-100.0); Monocytes # (A) 0.3 k/uL (0-1.0); Monocytes % (A) 6 %; Neutrophils % (A) 54 %; Platelet Count 305 k/uL (150-450); RBC 4.72 m/uL (3.80-5.40); RDW 13.5 % (11.5-15.5); WBC 5.6 k/uL (3.8-10.6)
[2024-09-09 11:29] LABS: ALT 14 U/L (4-34); AST 21 U/L (14-36); African American GFR (CKD) >90 (>60 ml/min/1.73 sqM); Albumin 4.4 g/dL (3.5-5.0); Alkaline Phosphatase 78 U/L (38-126); Anion Gap 8 mmol/L; Blood Urea Nitrogen 12 mg/dL (7-17); Carbon Dioxide 28 mmol/L (22-30); Chloride 101 mmol/L (98-107); Glucose 77 mg/dL (74-99); Non-African American GFR(CKD) >90 (>60 ml/min/1.73 sqM); Potassium 4.4 mmol/L (3.5-5.1); Sodium 137 mmol/L (137-145); Total Bilirubin 0.6 mg/dL (0.2-1.3); Total Protein 7.3 g/dL (6.3-8.2)
[2024-09-09] MEDS: haloperidoL 5 MG TAB PO PRN (13:37)
--- NOTE | 2024-09-09 17:25 | P.PN ---
Progress Note - Text Progress Note Date: 09/09/24 Interval History: Chief complaint "suicidal thoughts" History of presenting illness Patient was seen [wandering the hallways] and was directable and agreeable to speak with telegraphic typewriter repairer in the office. Patient seemed somewhat frantic when first entering. She had noted "I think I am afraid of abandonment and my attachment to men's unhealthy" she notes that she feels that she is borderline. She notes that she has been having mood swings and ruminating on a lot of situations. She notes that her sleep was poor last night and her energy was "high". She notes that her appetite is good. She was unable to answer how her concentration was. She would like to restart her metformin and Bupropion. She notes that she is very afraid of medications that cause weight gain. She was in favor of starting a mood stabilizer.. At this time patient denies any suicidal or homical ideations, intent or plan. Patient denies any auditory, visual hallucinations and denies any paranoia or delusions. Patient denies any side effects from the medications and has been compliant with meds. Mental Status Exam: General Appearance: [Patient appears to be stated age is alert, directable, and cooperative.] Behavior: Somewhat hyper and restless Speech: Patient's speech is fluent and pressured. Mood/Affect: Mood is improving mildly, hypomanic and affect is congruent. Suicidality/Homicidality: Patient denies having any suicidal or homicidal ideation intent or plan. Perceptions: Patient denies any visual hallucinations [and denies any auditory hallucinations] Though content/process: [There is no evidence of any delusional thought content and thought process is linear and goal-directed.] Memory and concentration: AOX3, grossly intact for the purposes of this session Judgment and insight: Improving mildly Diagnosis Bipolar disorder Binge eating disorder Generalized anxiety disorder Cluster B personality Alcohol use severe Cannabis use Assessment Patient did present somewhat hypomanic during the interview and had expressed concerns over having borderline personality disorder. Her evidence was instability with relationships with men and frantic fear of abandonment. Patient may be a candidate for DBT IOP program upon discharge. Plan: -Patient continues to meet criteria for inpatient psychiatric admission for symptom stabilization and safety. Patient has signed [adult voluntary form and] [medication consent] and was placed in patient's chart. -Medications: Continue Abilify 5 mg take 1 tablet by mouth once daily Start Lamotrigine 25 mg take 1 tablet by mouth once daily Restart Wellbutrin XL 150 mg take 1 tablet by mouth once daily Metformin 500 mg take 1 tablet by mouth twice daily -When necessary Ativan and Haldol for agitation/aggression. -NRT - [nicotine patch] -SW on board for discharge planning. Encouraged the patient to participate in milieu.
[2024-09-09] MEDS: metFORMIN 500 MG TAB PO SCH (18:32)
[2024-09-09] MEDS: lamoTRIgine 25 MG TAB PO SCH (18:32)
[2024-09-09] MEDS: MELATONIN 5 MG TABLET PO SCH (20:47)
--- NOTE | 2024-09-09 23:20 | P.PN ---
Progress Note - Text Progress Note Date: 09/09/24 patient refused medical evaluation at this time
[2024-09-10] MEDS: buPROPion XL 150 MG TAB.ER.24H PO SCH (09:29)
--- NOTE | 2024-09-10 15:52 | P.PN ---
Progress Note - Text Progress Note Date: 09/10/24 Interval history: Patient was seen bedside and was directable and agreeable to speak with senior writer. She states that her mood is "tired ". She did not want to talk to this provider but with encouragement, she said that she is feeling well and would like to be continued on current medication regimen. However, she reports having trouble sleeping last night despite taking melatonin. She was agreeable with being started on Seroquel for sleep. At this time patient denies any suicidal or homicidal ideations intent or plan. Denies any Auditory or visual hallucinations. Patient denies any side effects from the medications and has been compliant with meds. Mental status exam: General Appearance: [Patient appears to be stated age is alert, directable, and cooperative.] Behavior: [No agitated behavior. Patient is calm and directable]. Poor eye contact Speech: Patient's speech is fluent and nonpressured. Mood/Affect: Mood is "tired ", affect is congruent and constricted. Suicidality/Homicidality: Patient denies having any suicidal or homicidal ideation intent or plan. Perceptions: Patient denies any auditory or visual hallucinations. Though content/process: [There is no evidence of any delusional thought content and thought process is linear and goal-directed.] Memory and concentration: AOX3, grossly intact for the purposes of this session Judgment and insight: improving mildly Assessment/Plan: Continue with current diagnosis. Patient continues to meet criteria for inpatient psychiatric admission for symptom stabilization and safety. Add Seroquel 25 mg at bedtime. If patient improves with this, consider transitioning Abilify to Seroquel. Monitor for medication compliance and for any psychotropic medication side effects. Will continue to monitor ongoing response to treatment. Encouraged participation in milieu.
--- NOTE | 2024-09-10 20:46 | P.MDCNMH ---
History of Present Illness H&P Date: 09/10/24 Patient is a 23-year-old female with history of hormonal disorder? Currently in mental health unit. [facility] physicians consulted for medical management. She claims that she sees OB, and was started on metformin 500 twice daily. Denies any other medical problems. She denies any chest pain, shortness of breath, abdominal pain, nausea, vomiting, urinary or bowel complaints. She denies any smoking, alcohol use or illicit drug use. She did use marijuana in the past. WBC 5.6, hemoglobin 13.4, A1c 5.1, creatinine 0.64, urinalysis contaminated, toxicology positive for marijuana, COVID-19 negative. Pertinent positives and negatives as discussed in HPI, a complete review of systems was performed and all other systems are negative. Patient seen and examined at bedside. Vital signs reviewed General: nontoxic, no distress, appears at stated age Derm: warm, dry Head: atraumatic, normocephalic, symmetric Eyes: EOMI, no lid lag, anicteric sclera, pupils equal round reactive to light ENT: Nose and ears atraumatic Neck: No thyromegaly, supple Mouth: no lip lesion, mucus membranes moist Cardiovascular: S1S2 reg, no murmur, no edema Lungs: clear to auscultation bilateral, no rhonchi, no rales, no wheeze, no accessory muscle use Abdominal: soft, nontender to palpation, no guarding, no appreciable organomegaly Ext: no gross muscle atrophy, muscle strength muscle strength 5 out of 5 in all 4 extremities, no contractures Neuro: CN II-XII grossly intact Psych: Alert, oriented, appropriate affect Assessment/Plan: Active: Hormonal disorder? PCOS? -On metformin 500 twice daily, continue Bipolar disorder Binge eating disorder Anxiety disorder Alcohol use disorder Cannabis use disorder -Management per psychiatry -I will start her on thiamine 100 mg daily Thank you for allowing us to participate in the care of this pleasant patient. Do not hesitate to contact us with questions. Someone can be reached from the [facility] hospitalist group all hours of the day at [phone] or via [employer]. Past Medical History Past Medical History: No Reported History Additional Past Medical History / Comment(s): migraines History of Any Multi-Drug Resistant Organisms: None Reported Past Surgical History: No Surgical Hx Reported Past Anesthesia/Blood Transfusion Reactions: No Reported Reaction Past Psychological History: ADD/ADHD, Depression Smoking Status: Never smoker Past Alcohol Use History: None Reported Past Drug Use History: None Reported Medications and Allergies Home Medications Medication Instructions Recorded Confirmed Type buPROPion HCL [buPROPion HCL XL] 150 mg PO DAILY 09/07/24 09/07/24 History Allergies Allergy/AdvReac Type Severity Reaction Status Date / Time No Known Allergies Allergy Verified 09/07/24 20:28 Physical Exam Vitals: Vital Signs Temp Pulse BP 09/10/24 09:33 97.9 F 99 139/60 Cranial Nerve Examination - Cranial Nerves Cranial Nerve II- Optic: Intact Cranial Nerve III- Oculomotor: Intact Cranial Nerve IV- Trochlear: Intact Cranial Nerve V- Trigeminal: Intact Cranial Nerve - Abducens: Intact Cranial Nerve VII- Facial: Intact Cranial Nerve VIII- Auditory: Intact Cranial Nerve IX- Glossopharyngeal: Intact Cranial Nerve X- Vagus: Intact Cranial Nerve XI- Accessory: Intact Cranial Nerve XII- Hypoglossal: Intact Results CBC & Chem 7: 09/09/24 10:05 09/09/24 10:05
[2024-09-10] MEDS: QUEtiapine 25 MG TAB PO SCH (21:07)
[2024-09-10] MEDS: THIAMINE 100 MG TAB PO SCH (22:00)
--- NOTE | 2024-09-11 13:30 | P.PN ---
Progress Note - Text Progress Note Date: 09/11/24 Interval history: Patient was seen bedside and was directable and agreeable to speak with grant writer. She states that her mood is "really upset" because she learned that her mother shared some information with an acquaintance that she did not want shared. She is worried about how people might perceive her hospitalization in the context of her past behaviors. Patient states that she does not feel the medication is working because she is continuing to feel really emotional and upset. She feels that her reactions are bigger than what a situation calls for. She is agreeable with being titrated on Seroquel and Abilify being discontinued. She says that her sleep was fairly adequate with Seroquel but is interested in the higher dose. She endorses fair appetite. At this time patient denies any suicidal or homicidal ideations intent or plan. Denies any Auditory or visual hallucinations. Patient denies any side effects from the medications and has been compliant with meds. Mental status exam: General Appearance: [Patient appears to be stated age is alert, directable, and cooperative.] Behavior: [No agitated behavior. Patient is calm and directable]. good eye contact Speech: Patient's speech is hyperverbal Mood/Affect: Mood is "upset", affect is congruent and constricted. Suicidality/Homicidality: Patient denies having any suicidal or homicidal ideation intent or plan. Perceptions: Patient denies any auditory or visual hallucinations. Though content/process: [There is no evidence of any delusional thought content and thought process is linear and goal-directed.] Memory and concentration: AOX3, grossly intact for the purposes of this session Judgment and insight: improving mildly Assessment/Plan: Continue with current diagnosis. Patient continues to meet criteria for inpatient psychiatric admission for symptom stabilization and safety. Increase Seroquel to 50 mg at bedtime for mood stabilization and sleep. Stop Abilify. Monitor for medication compliance and for any psychotropic medication side effects. Will continue to monitor ongoing response to treatment. Encouraged participation in milieu.
[2024-09-11] MEDS: FLUCONAZOLE 150 MG TAB PO STA (16:13)
[2024-09-11] MEDS: QUEtiapine 50 MG TAB PO SCH (21:35)
[2024-09-12 11:35] VITALS: RESP 16
[2024-09-12 11:36] VITALS: BP 121/62; PULSE 91; TEMP 97.3
--- NOTE | 2024-09-12 13:54 | P.DS ---
Providers Date of admission: 09/07/24 22:51 Expected date of discharge: 09/12/24 Attending physician: Mercy Gonzalez MD Consults: 09/07/24 23:04 Consult Physician Routine Consulting Provider: Doreen Physician Consult Reason/Comments: H&P Do you want consulting provider notified?: Yes Primary care physician: Stated None - Discharge Diagnosis(es) (1) Bipolar disorder current episode depressed Current Visit: Yes Status: Acute Priority: High (2) Binge eating disorder Current Visit: Yes Status: Acute Priority: Medium (3) Generalized anxiety disorder Current Visit: Yes Status: Acute Priority: Medium (4) Cluster B personality disorder Current Visit: Yes Status: Acute Priority: Medium (5) Cannabis use disorder Current Visit: Yes Status: Acute Priority: Low (6) Alcohol use disorder in remission Current Visit: Yes Status: Chronic Priority: Low Hospital Course: Admission HPI: Admission note was completed by Dr. Leonardo "Patient presented to the ED for increased depression and SI. She had a plan to drink bleach. Patient was seen via HIPAA-compliant Zoom and patient consented. She was sad and tearful on interview. She said she had been thinking about suicide for the past 3 days. She reports contemplating drinking a bottle of bleach that was nearby yesterday when she called 911 to get help. She did not want to hurt her son and therefore she decided to get help. Patient reports numerous psychosocial stressors, including on/off relationship and interpersonal conflict with an ex- boyfriend, recent of her foster father, loss of job and car. She endorses low mood for the past 2 months and denies low mood following of her child. She reports trouble falling and staying asleep. She has repetitive dreams and images of her father, which she witnessed. She endorses fair appetite, poor energy, anhedonia, and fair concentration. She has feelings of guilt of being not good enough but denies thoughts of worthlessness. She endorses binge eating, including eating until she is uncomfortably full, eating when not hungry, eating while alone, and feeling embarrassed. She says this has been ongoing for many years and she has been binge-eating at least once a week recently. She denies purging or laxative use or other compensatory measures. Patient reports periods of up to 1 week with elevated energy, talkativeness, poor sleep, impulsiveness, risk taking including consuming more alcohol though she wanted to be sober, and grandiosity. Patient reports worrying constantly about "everything." She is currently worried about her car, bills, and her son. She endorses muscle fatigue, keyed up, restlessness, and low energy. Patient denies any suicidal or homicidal ideations intent or plan. She denies access to weapons/firearms. At this time patient denies any auditory or visual hallucinations. Patient denies any recent flight of ideas racing thoughts and increased in goal directed behavior. Patient denies all substance use recently but UDS was positive for cannabis." Hospital course: Upon admission to the unit patient was directable and agreeable to commence treatment and signed adult voluntary form.. Patient got along well with other patients on the unit and followed unit protocol. Patient was compliant with the medications and denied any side effects throughout hospital course. Patient was started on Seroquel and this was increased to 50 mg at bedtime for sleep/mood stabilization, Lamictal 25 mg daily for mood stabilization, Wellbutrin XL 150 mg daily for depression, melatonin 10 mg at bedtime for insomnia. Patient spoke of her stressors and engaged in therapy both group and individual. Patient was also seen by medical team for history and physical exam. Throughout the course of the hospitalization patient gradually improved with regards to mood, anxiety, sleep and returned back to their baseline level of functioning. On the day of discharge patient denied any suicidal or homicidal ideations intent or plan denied any auditory or visual hallucinations. The patient denied any access to guns or weapons. Patient denied any paranoia and did not endorse any delusions. Patient does not have a significant history of substance abuse and was counseled on abstaining from all substances including alcohol and marijuana. Patient was also counseled on the medications and need for regular compliance and was encouraged to follow-up with their outpatient appointment for mental health and also for primary care. Patient to be discharged back home alone and will follow-up with [facility]. Mental status exam: General Appearance: Patient appears to be stated age is alert, pleasant, and cooperative. Patient is in no acute distress and has improved hygiene and grooming Behavior: Patient is calmly seated without any agitated behavior. Speech: Patient's speech is fluent and nonpressured. Mood/Affect: Patient reports their mood is "good", affect is congruent and euthymic. Suicidality/Homicidality: Patient denies having any suicidal or homicidal ideation intent or plan. Perceptions: Patient denies any auditory or visual hallucinations. Though content/process: There is no evidence of any delusional thought content and thought process is linear and goal-directed. Memory and concentration: AOX3, grossly intact for the purposes of this session. Can spell "WORLD" backwards correctly. Judgment and insight: Fair Impression: Bipolar disorder, current episode depressed Binge eating disorder Generalized anxiety disorder Cluster B traits Alcohol use disorder, in sustained remission Cannabis use disorder Plan: -Continue with discharge today as patient has improved and stabilized psychiatrically and is not currently an imminent threat to themself and/or others. -Continue medications: Wellbutrin XL 150 mg daily, Seroquel 50 mg at bedtime, Lamictal 25 mg daily, melatonin 10 mg at bedtime -Patient was counseled on the need for medication compliance and appropriate follow-up at mental health and also primary care for medical issues. Patient verbalized understanding and agreed. -Social work to help coordinate patients discharge today. also to ensure safe home environment that guns/weapons are either removed from the home or locked away. Social work also to arrange for patients follow up appointments with [facility] for psychiatric care along with follow up with primary care provider. -Patient counseled on abstaining from recreational drugs and marijuana and alcohol. Was informed/educated on the adverse effects on their physical and mental health. Patient verbally agreed and understood. -Patient was instructed to return to the hospital or seek immediate medical care if their psychiatric or medical symptoms do worsen or reoccur. Abnormal Labs 09/07/24 09/07/24 20:04 20:04 Urine Appearance Turbid H Urine Protein 1+ H Ur Leukocyte Esterase Small H Urine WBC 8 H Ur Squamous Epith Cells 17 H Calcium Oxalate Crystal Occasional H Amorphous Sediment Few H Urine Bacteria Rare H Urine Mucus Many H U Marijuana (THC) Screen Detected H Vital Signs Temp 97.3 F L 09/12/24 08:00 Pulse 91 09/12/24 08:00 Resp 16 09/12/24 08:00 BP 121/62 09/12/24 08:00 Pulse Ox 95 09/12/24 08:00 FiO2 Intake & Output 09/11/24 09/12/24 09/12/24 18:59 06:59 18:59 Weight 85.3 kg Allergies Allergy/AdvReac Type Severity Reaction Status Date / Time No Known Allergies Allergy Verified 09/07/24 20:28 Patient Condition at Discharge: Stable Plan - Discharge Summary Discharge Rx Participant: No New Discharge Prescriptions: New metFORMIN HCL [Glucophage] 500 mg PO BID-W/MEALS 30 Days #60 tab lamoTRIgine [LaMICtal] 25 mg PO DAILY 30 Days #30 tab Melatonin 10 mg PO HS 30 Days #60 tab QUEtiapine [SEROquel] 50 mg PO HS 30 Days #30 tab Thiamine [Vitamin B-1] 100 mg PO DAILY 30 Days #30 tab buPROPion XL [Wellbutrin XL] 150 mg PO DAILY tab Continue buPROPion HCL [buPROPion HCL XL] 150 mg PO DAILY 30 Days #30 tab Discharge Medication List Melatonin 10 mg PO HS 30 Days #60 tab 09/12/24 [Rx] QUEtiapine [SEROquel] 50 mg PO HS 30 Days #30 tab 09/12/24 [Rx] Thiamine [Vitamin B-1] 100 mg PO DAILY 30 Days #30 tab 09/12/24 [Rx] buPROPion HCL [buPROPion HCL XL] 150 mg PO DAILY 30 Days #30 tab 09/12/24 [Rx] buPROPion XL [Wellbutrin XL] 150 mg PO DAILY tab 09/12/24 [Rx] lamoTRIgine [LaMICtal] 25 mg PO DAILY 30 Days #30 tab 09/12/24 [Rx] metFORMIN HCL [Glucophage] 500 mg PO BID-W/MEALS 30 Days #60 tab 09/12/24 [Rx] Follow up Appointment(s)/Referral(s): [facility] [Outside] - 09/15/24 8:00 am (09/15 @ 08:00 with Ines Ellington 09/16 @ 15:00 sadie Cortez) [facility] [REFERRING] - 1 Week Patient Instructions/Handouts: How to Stop Smoking (DC), Depression (DC) Activity/Diet/Wound Care/Special Instructions: [facility] [[email or web address]] Discharge Info Avoid the use of street drugs and alcohol. Take all medications as prescribed. When you are in need of refills on your medications, please contact your outpatient medical provider and/or outpatient psychiatrist. Please go to your scheduled outpatient appointments for aftercare treatment. If symptoms return or become worse, call the crisis line at or and/or visit the nearest emergency room for assistance. National Suicide and Crisis Lifeline - call or text 988 Discharge Disposition: HOME SELF-CARE
== END 2024-09-12 13:30 | disposition home or self-care (01) | DRG 753 ==
LOC: EC 18:05 → 3MHU 22:51
PROVIDERS: ADMIT Psychiatry & Neurology Psychiatry; ATTEND Psychiatry & Neurology Psychiatry
DX: F31.30 Bipolar disorder, current episode depressed, mild or moderate severity, unspecified (principal); F41.1 Generalized anxiety disorder; F50.819 Binge eating disorder, unspecified; F60.89 Other specific personality disorders; G47.00 Insomnia, unspecified; M62.89 Other specified disorders of muscle; R45.1 Restlessness and agitation; R45.851 Suicidal ideations; G43.909 Migraine, unspecified, not intractable, without status migrainosus; E34.50 Androgen insensitivity syndrome, unspecified; F90.9 Attention-deficit hyperactivity disorder, unspecified type; F10.21 Alcohol dependence, in remission; F12.10 Cannabis abuse, uncomplicated; E28.2 Polycystic ovarian syndrome; Z53.29 Procedure and treatment not carried out because of patient's decision for other reasons; B37.31 Acute candidiasis of vulva and vagina; Z63.4 Disappearance and death of family member; Z79.899 Other long term (current) drug therapy; Z91.51 Personal history of suicidal behavior; Z91.52 Personal history of nonsuicidal self-harm; Z11.52 Encounter for screening for COVID-19; Z56.0 Unemployment, unspecified; Z79.84 Long term (current) use of oral hypoglycemic drugs
CPT/HCPCS: 80053; 80306; 81001; 81025; 82075; 83036; 84443; 85025; 87635; 99285